=== PATIENT | male | born 1990 | race Caucasian/White ===

== ENCOUNTER 2016-05-13 13:15 | Emergency (ER) | payer BC ==
[~2016-05-13] VITALS: Ht 185.4 cm; Wt 100.0 kg
[~2016-05-13 13:15] MED LIST: ADDERALL15 MG PO; ANUSOL-HC SUPPO25 MG RC; BACTRIM DS 8001 TAB PO; CELEXA PO; COMPLERA 200 MG1 TAB PO; DOXYCYCLINE 10100 MG PO; MARINOL10 MG PO; NEXIUM 40MG40 MG PO; NO HOME MEDICATIONS; NORCO 325 MG-51 TAB PO; PYRIDIUM200 M1 PO; SEROQUEL; ZOVIRAX400 MG PO; ZYPREXA7.5 MG PO; [UNRECOGNIZED DRUG - CODE] TD
[2016-05-13 13:21] VITALS: BP 114/81; PULSE 102; TEMP 98.9
[2016-05-13] MEDS ORDERED: ADDERALL30 MG PO (13:24)
[2016-05-13] MEDS ORDERED: ODEFSEY TABLET1 EACH PO (13:24)
[2016-05-13] MEDS ORDERED: MARINOL10 MG PO (13:25)
[2016-05-13] MEDS ORDERED: WELLBUTRIN SR150 M1 PO (13:25)
[2016-05-13] MEDS ORDERED: DEPO-TESTOS100 MG/ML IM (13:26)
[2016-05-13] MEDS ORDERED: CHERATUSSIN AC120 ML PO (13:57)
[2016-05-13] MEDS ORDERED: AMOXICILLIN 8751 TAB PO (13:57)
== END 2016-05-13 14:10 | disposition home or self-care (01) ==
LOC: COL.ER 13:15
DX: J01.00 Acute maxillary sinusitis, unspecified (principal); Z21 Asymptomatic human immunodeficiency virus [HIV] infection status

== ENCOUNTER 2016-11-25 17:43 | Emergency (ER) | payer BC ==
[~2016-11-25] VITALS: Ht 185.4 cm; Wt 108.6 kg
[~2016-11-25 17:43] MED LIST changes: +ADDERALL30 MG PO; +AMOXICILLIN 8751 TAB PO; +CHERATUSSIN AC120 ML PO; +DEPO-TESTOS100 MG/ML IM; +ODEFSEY TABLET1 EACH PO; +WELLBUTRIN SR150 M1 PO
[2016-11-25 18:09] VITALS: BP 120/74; TEMP 97.9
[2016-11-25] MEDS ORDERED: ODEFSEY TABLET1 EACH PO (18:12)
[2016-11-25] MEDS ORDERED: NORCO 325 MG-51 TAB PO (18:31)
[2016-11-25] MEDS ORDERED: PEN-VEE K500 MG PO (18:31)
[2016-11-25 18:45] VITALS: PULSE 88
== END 2016-11-25 18:45 | disposition home or self-care (01) ==
LOC: COL.ER 17:43
DX: K08.89 Other specified disorders of teeth and supporting structures (principal); F17.210 Nicotine dependence, cigarettes, uncomplicated; Z21 Asymptomatic human immunodeficiency virus [HIV] infection status

== ENCOUNTER 2017-01-19 16:26 | Emergency (ER) | payer BC ==
[~2017-01-19] VITALS: Ht 185.4 cm; Wt 100.0 kg
[~2017-01-19 16:26] MED LIST changes: +PEN-VEE K500 MG PO
[2017-01-19 16:29] VITALS: TEMP 98.1
[2017-01-19] MEDS ORDERED: CLEOCIN HCL300 MG PO (16:50)
[2017-01-19] MEDS ORDERED: NORCO 325 MG-51 TAB PO (16:51)
[2017-01-19 16:59] VITALS: BP 136/85; PULSE 100
== END 2017-01-19 17:00 | disposition home or self-care (01) ==
LOC: COL.ER 16:26
DX: K08.89 Other specified disorders of teeth and supporting structures (principal); F17.210 Nicotine dependence, cigarettes, uncomplicated

== ENCOUNTER 2018-10-20 14:31 | Emergency (ER) | payer SELFPAY ==
[~2018-10-20] VITALS: Ht 185.4 cm; Wt 113.6 kg
[~2018-10-20 14:31] MED LIST changes: +CLEOCIN HCL300 MG PO
[2018-10-20 14:40] VITALS: TEMP 97
[2018-10-20] MEDS ORDERED: MOTRIN 200200 MG/TAB PO (15:10)
[2018-10-20 16:17] LABS: BASO % 0.8 % (0.0-2.0); EOS # 0.1 (0.0-0.7); EOS % 1.5 % (0-4.0); GRAN # 2.9 (1.4-6.5); GRAN % 55.1 % (42.2-75.2); HEMATOCRIT 47.5 % (42.0-52.0); HEMOGLOBIN 16.1 g/dl (13.5-18.0); LYMPH # 1.4 (1.2-3.4); LYMPH % 25.8 % (20.0-51.0); MEAN CELL VOLUME 93 fl (80.0-100.0); MEAN CORPUSCULAR HEMOGLOBIN 31 pg (27.0-31.0); MEAN CORPUSCULAR HGB CONC 34 g/dl (33.0-37.0); MONO # 0.9 (0.1-0.6); MONO % 16.6 % (1.7-9.3); PLATELET COUNT 236 K/mm3 (130-400); RED BLOOD COUNT 5.12 M/mm3 (4.20-5.60); REDCELL DISTRIBUTION WIDTH-CV 11.8 % (11.5-14.5)
[2018-10-20 16:36] LABS: ALBUMIN 4.9 gm/dL (3.5-5.0); BILIRUBIN,TOTAL 0.6 mg/dL (0.0-1.0); C-REACTIVE PROTEIN 0.7 mg/dL (0.0-0.9); CALCIUM 9.7 mg/dL (8.4-10.2); CREATININE, serum 1.03 (0.66-1.25); POTASSIUM 4.5 mmol/L (3.4-5.0); TOTAL PROTEIN 8.5 gm/dL (6.4-8.2)
[2018-10-20 17:10] LABS: COLLECTION METHOD CLEAN CATCH
[2018-10-20 17:19] LABS: PH 6 (5-8); SQUAMOUS EPITHELIAL None Seen /hpf; URINE APPEARANCE Clear; URINE BACTERIA None Seen /hpf; URINE BILIRUBIN Negative (NEGATIVE); URINE BLOOD Negative (NEGATIVE); URINE COLOR Yellow; URINE GLUCOSE Negative (NEGATIVE); URINE KETONE Negative (NEGATIVE); URINE LEUKOCYTE ESTERASE Negative (NEGATIVE); URINE NITRATE Negative (NEGATIVE); URINE PROTEIN(semi-quant) Negative (NEGATIVE); URINE RBC 0-2 /hpf; URINE UROBILINOGEN Negative (NEGATIVE)
[2018-10-20] MEDS ORDERED: FLOMAX 0.40.4 MG/CAP PO (17:49)
[2018-10-20 18:13] VITALS: BP 105/83; PULSE 100
[2018-10-21] MEDS ORDERED: FLEXERIL 1010 MG/TAB PO (13:32)
[2018-10-21] MEDS ORDERED: PREDNISONE20 MG PO (14:33)
[2018-10-21] MEDS ORDERED: NORCO 325 MG-51 TAB PO (15:22)
== END 2018-10-20 18:17 | disposition home or self-care (01) ==
LOC: COL.ER 14:31
PROVIDERS: Emergency Medicine
DX: K59.00 Constipation, unspecified (principal); R10.31 Right lower quadrant pain; R10.32 Left lower quadrant pain; F90.9 Attention-deficit hyperactivity disorder, unspecified type; F17.210 Nicotine dependence, cigarettes, uncomplicated; F12.90 Cannabis use, unspecified, uncomplicated; Z21 Asymptomatic human immunodeficiency virus [HIV] infection status; Z91.14 Patient's other noncompliance with medication regimen
CPT/HCPCS: J2405; J7030; Q9967

== ENCOUNTER 2018-10-21 11:05 | Emergency (ER) | payer SELFPAY ==
[~2018-10-21] VITALS: Ht 185.4 cm; Wt 113.6 kg
[~2018-10-21 11:05] MED LIST changes: +FLOMAX 0.40.4 MG/CAP PO; +MOTRIN 200200 MG/TAB PO
[2018-10-21 11:28] VITALS: TEMP 97.4
[2018-10-21 12:34] LABS: BASO % 0.6 % (0.0-2.0); EOS # 0.1 (0.0-0.7); EOS % 1.7 % (0-4.0); GRAN # 2.4 (1.4-6.5); GRAN % 52.4 % (42.2-75.2); HEMATOCRIT 45.3 % (42.0-52.0); HEMOGLOBIN 15.5 g/dl (13.5-18.0); LYMPH # 1.4 (1.2-3.4); LYMPH % 30.2 % (20.0-51.0); MEAN CELL VOLUME 92 fl (80.0-100.0); MEAN CORPUSCULAR HEMOGLOBIN 32 pg (27.0-31.0); MEAN CORPUSCULAR HGB CONC 34 g/dl (33.0-37.0); MEAN PLATELET VOLUME 9.4 fl (7.4-10.4); MONO # 0.7 (0.1-0.6); MONO % 14.9 % (1.7-9.3); PLATELET COUNT 212 K/mm3 (130-400); RED BLOOD COUNT 4.91 M/mm3 (4.20-5.60); REDCELL DISTRIBUTION WIDTH-CV 11.9 % (11.5-14.5)
[2018-10-21] MEDS ORDERED: FLEXERIL 1010 MG/TAB PO (13:32)
[2018-10-21 13:41] LABS: ALBUMIN 4.1 gm/dL (3.5-5.0); BILIRUBIN,TOTAL 0.5 mg/dL (0.0-1.0); CALCIUM 8.7 mg/dL (8.4-10.2); CREATININE, serum 0.98 (0.66-1.25); POTASSIUM 4.5 mmol/L (3.4-5.0)
[2018-10-21 13:47] LABS: C-REACTIVE PROTEIN 0.5 mg/dL (0.0-0.9)
[2018-10-21] MEDS ORDERED: PREDNISONE20 MG PO (14:33)
[2018-10-21] MEDS ORDERED: NORCO 325 MG-51 TAB PO (15:22)
[2018-10-21 18:05] VITALS: BP 128/91; PULSE 94
== END 2018-10-21 19:23 | disposition short-term general hospital (02) ==
LOC: COL.ER 11:05
PROVIDERS: Emergency Medicine
DX: M54.16 Radiculopathy, lumbar region (principal); M51.26 Other intervertebral disc displacement, lumbar region; Z21 Asymptomatic human immunodeficiency virus [HIV] infection status; Z79.1 Long term (current) use of non-steroidal anti-inflammatories (NSAID)
CPT/HCPCS: J1100; J1885; J2060; J2270; J2550

== ENCOUNTER 2019-04-16 06:55 | Emergency (ER) | payer SELFPAY ==
[~2019-04-16] VITALS: Ht 185.4 cm; Wt 118.2 kg
[~2019-04-16 06:55] MED LIST changes: +FLEXERIL 1010 MG/TAB PO; +PREDNISONE20 MG PO
[2019-04-16 07:01] VITALS: BP 138/71; TEMP 99.1
[2019-04-16] MEDS ORDERED: FLEXERIL 1010 MG/TAB PO (07:22)
[2019-04-16] MEDS ORDERED: BIKTARVY 50-201 EACH PO (07:27)
[2019-04-16 08:35] VITALS: PULSE 100
== END 2019-04-16 08:35 | disposition home or self-care (01) ==
LOC: COL.ER 06:55
DX: M54.5 Low back pain (principal)
CPT/HCPCS: J1885

== ENCOUNTER 2019-07-12 11:25 | Emergency (ER) | payer BC ==
[~2019-07-12] VITALS: Ht 185.4 cm; Wt 127.3 kg
[~2019-07-12 11:25] MED LIST changes: +BIKTARVY 50-201 EACH PO
[2019-07-12 12:06] LABS: COLLECTION METHOD CLEAN CATCH
[2019-07-12] MEDS ORDERED: AZO-STANDARD95 MG PO (12:06)
[2019-07-12 12:14] LABS: PH 5 (5-8); SQUAMOUS EPITHELIAL None Seen /hpf; URINE APPEARANCE Clear; URINE BACTERIA None Seen /hpf; URINE BILIRUBIN Negative (NEGATIVE); URINE BLOOD Negative (NEGATIVE); URINE COLOR Amber; URINE GLUCOSE Negative (NEGATIVE); URINE KETONE Negative (NEGATIVE); URINE LEUKOCYTE ESTERASE Negative (NEGATIVE); URINE NITRATE Positive (NEGATIVE); URINE PROTEIN(semi-quant) Negative (NEGATIVE); URINE RBC 0-2 /hpf; URINE UROBILINOGEN >=4.0 mg/dL (NEGATIVE)
[2019-07-12] MEDS ORDERED: CEFTIN500 MG PO (12:36)
[2019-07-12 13:05] LABS: BASO # 0.1 (0.0-0.2); BASO % 1.1 % (0.0-2.0); EOS # 0.1 (0.0-0.7); EOS % 2.1 % (0-4.0); GRAN # 2.7 (1.4-6.5); HEMATOCRIT 43.6 % (42.0-52.0); HEMOGLOBIN 14.9 g/dl (13.5-18.0); LYMPH # 2.6 (1.2-3.4); LYMPH % 42.8 % (20.0-51.0); MEAN CELL VOLUME 96 fl (80.0-100.0); MEAN CORPUSCULAR HEMOGLOBIN 33 pg (27.0-31.0); MEAN CORPUSCULAR HGB CONC 34 g/dl (33.0-37.0); MEAN PLATELET VOLUME 9.3 fl (7.4-10.4); MONO # 0.6 (0.1-0.6); MONO % 9.8 % (1.7-9.3); PLATELET COUNT 259 K/mm3 (130-400); RED BLOOD COUNT 4.56 M/mm3 (4.20-5.60); REDCELL DISTRIBUTION WIDTH-CV 12.5 % (11.5-14.5)
[2019-07-12 13:19] LABS: ALBUMIN 4.4 gm/dL (3.5-5.0); BILIRUBIN,TOTAL 0.4 mg/dL (0.0-1.0); CALCIUM 9.2 mg/dL (8.4-10.2); CREATININE, serum 0.94 (0.66-1.25); POTASSIUM 4.7 mmol/L (3.4-5.0); TOTAL PROTEIN 7.5 gm/dL (6.4-8.2)
[2019-07-12 13:37] VITALS: BP 130/83; PULSE 84; TEMP 97.8
== END 2019-07-12 13:38 | disposition home or self-care (01) ==
LOC: COL.ER 11:25
PROVIDERS: Emergency Medicine
DX: R30.0 Dysuria (principal); F17.210 Nicotine dependence, cigarettes, uncomplicated; Z21 Asymptomatic human immunodeficiency virus [HIV] infection status
CPT/HCPCS: J0696

== ENCOUNTER 2019-07-22 00:14 | Emergency (ER) | payer BC ==
[~2019-07-22] VITALS: Ht 185.4 cm; Wt 127.3 kg
[~2019-07-22 00:14] MED LIST changes: +AZO-STANDARD95 MG PO; +CEFTIN500 MG PO
[2019-07-22 01:45] VITALS: BP 156/80; PULSE 98; TEMP 97.2
== END 2019-07-22 01:48 | disposition home or self-care (01) ==
LOC: COL.ER 00:14
DX: F15.10 Other stimulant abuse, uncomplicated (principal); F42.4 Excoriation (skin-picking) disorder; F17.210 Nicotine dependence, cigarettes, uncomplicated; Z21 Asymptomatic human immunodeficiency virus [HIV] infection status; Z90.89 Acquired absence of other organs

== ENCOUNTER 2019-12-29 00:54 | Emergency (ER) | payer BC ==
[~2019-12-29] VITALS: Ht 185.4 cm; Wt 118.2 kg
[~2019-12-29 00:54] MED LIST changes: +ATIVAN 1MG T1 MG/TAB PO
[2019-12-29 01:12] VITALS: BP 138/85; TEMP 98.3
== END 2019-12-29 01:30 | disposition home or self-care (01) ==
LOC: COL.ER 00:54
DX: F99 Mental disorder, not otherwise specified (principal); Z53.21 Procedure and treatment not carried out due to patient leaving prior to being seen by health care provider